=== PATIENT | female | born 1995 | race Hispanic/Latino ===

== ENCOUNTER 2024-02-08 15:27 | Emergency (ER) | payer OTHER, SELFPAY ==
[2024-02-08 15:45] VITALS: PULSE 120; RESP 20; TEMP 37.7; O2SAT 99
[2024-02-08 16:22] LABS: EDUAAPPEAR Clear; EDUABILI 1+ (Negative); EDUABLOOD Trace (Negative); EDUACOLOR1 Orange; EDUAGLUCOSE Trace (Negative); EDUAKETONE Trace (Negative); EDUALEUKO 1+ (Negative); EDUANITRATE Positive (Negative); EDUAPH 5.5; EDUAPROTEIN 3+ (Negative); EDUASPGRAVITY 1.025
[2024-02-08 16:35] VITALS: BP 100/70
--- NOTE | 2024-02-08 16:39 | ED.ABDPAIN ---
HPI - Abdominal Pain General Chief Complaint: Nausea/Vomiting/Diarrhea Stated Complaint: Fever,throwing up,bodyaches Time Seen by Provider: 02/08/24 16:25 Source: patient Mode of arrival: ambulatory Limitations: no limitations History of Present Illness HPI narrative: 28-year-old female presents with complaint abdominal pain for 4 days. Patient reports that she has been feverish, fatigued at home. patient is 8 weeks . Patient had vaginal delivery. No longer having any vaginal bleeding. No delivery complications. No history of preeclampsia. Patient reports 4 days ago she had several episodes of diarrhea. Since then she has had no bowel movements. Reports nausea, vomited x2 today. denies urinary complaints. All systems reviewed and negative except as noted above. Related Data Home Medications Medication Instructions Recorded Confirmed albuterol sulfate 90 mcg/actuation 90 mcg inhalation DIRECTED 02/08/24 02/08/24 aerosol inhaler Allergies Allergy/AdvReac Type Severity Reaction Status Date / Time No Known Allergies Allergy Verified 02/08/24 16:17 Review of Systems Review of Systems: CONSTITUTIONAL: reports fever, chills, or sweats. EYES: Denies visual changes, redness, or discharge. ENT: Denies rhinorrhea, congestion, sore throat, or otalgia. CARDIOVASCULAR: Denies chest pain, palpitations, or edema. RESPIRATORY: Denies cough or dyspnea. GASTROINTESTINAL: Reports abdominal pain, nausea, vomiting, and diarrhea. GENITOURINARY: Denies dysuria or hematuria. SKIN: Denies rash or itching. MUSCULOSKELETAL: Denies back pain, joint pain, or myalgia. NEUROLOGIC: Denies headache, numbness, or weakness. PSYCHIATRIC: Denies anxiety or depression. All other systems reviewed are negative, except as documented in HPI. PMFSH Comments At time of signature, agree with nursing past medical, surgical, social and family history. There is no relevant family history pertinent to the presenting complaint. Exam Narrative: GENERAL: This is a well-nourished, well-developed patient, patient ill-appearing but no acute distress HEAD: normocephalic, atraumatic. EYES: PERRL. Sclera clear/white. Vision is grossly intact. EARS: External ears normal NOSE: External nose normal NECK: Neck supple, non-tender without lymphadenopathy, masses or thyromegaly. CARDIOVASCULAR: Regular rate and rhythm without murmurs, gallops, or rubs. RESPIRATORY: Clear to auscultation. Breath sounds equal bilaterally. No wheezes, rales, or rhonchi. GASTROINTESTINAL: tenderness to left lower quadrant on palpation,Abdomen soft, distended. Bowel sounds are active. No hepato-splenomegaly, or palpable masses. No guarding. SKIN: warm, Dry, intact with no suspicious lesions or rash, good texture and turgor. NEURO: awake, alert, and oriented to person, place and time. There were no obvious focal neurologic abnormalities. EXTREMITIES: No joint tenderness, effusion, or edema noted. Course Course Level of Care: Express Care Visit Vital Signs Vital signs: Vital Signs Temperature 37.7 C H 02/08/24 15:45 Pulse Rate 120 H 02/08/24 15:45 Respiratory Rate 20 02/08/24 15:45 Pulse Oximetry 99 02/08/24 15:45 Oxygen Delivery Room Air 02/08/24 15:45 Temperature 37.7 C H 02/08/24 15:45 Pulse Rate 120 H 02/08/24 15:45 Respiratory Rate 20 02/08/24 15:45 Pulse Oximetry 99 02/08/24 15:45 Oxygen Delivery Room Air 02/08/24 15:45 reviewed Transfer Transfered to: [facility] Transportation: Other ( private vehicle with ) Transfer rationale: transferring patient to ER for further evaluation of abdominal pain. Accepting physician: Dr. Calabrese MDM - Abdominal Pain Lab Data Labs: Lab Results 02/08/24 Range/Units 16:18 POC Urine Color [place] POC Urine Clarity Clear POC Urine pH 5.5 POC Ur Specif [place] 1.025 POC Urine Protein 3+ (Negative) POC Ur Glucose (UA
[2024-02-08 16:43] LABS: BEDSIDEPREGUCG Negative (Negative)
== END 2024-02-08 16:49 | disposition short-term general hospital (02) ==
PROVIDERS: Emergency Provider Nurse Practitioner Family; PCP Physician Assistant
DX: R10.32 Left lower quadrant pain (principal); E86.0 Dehydration
CPT/HCPCS: 81003; 81025; 99202; G0463